=== PATIENT | male | born 1950 | race Hispanic/Latino ===

== ENCOUNTER 2017-04-22 10:51 | Emergency (ER) | payer OTHER ==
[2017-04-22 11:02] VITALS: BMI 25.8
[2017-04-22 11:06] VITALS: TEMP 99.4
[2017-04-22 11:55] LABS: URINE BILIRUBIN NEGATIVE (NEGATIVE); URINE BLOOD MODERATE (NEGATIVE); URINE GLUCOSE (UA) NEGATIVE (NEGATIVE); URINE LEUKOCYTE ESTERASE LARGE Leu/uL (NEGATIVE); URINE NITRATE POSITIVE (NEGATIVE); URINE PROTEIN 30 mg/dL (<30 mg/dL); URINE UROBILINOGEN 0.2 E.U./dL (<1 E.U./dL)
[2017-04-22 11:56] LABS: URINE APPEARANCE CLOUDY (CLEAR); URINE COLOR YELLOW (YELLOW)
--- NOTE | 2017-04-22 11:58 | ED PDOC ---
Arrival/HPI - General Chief Complaint: Fever Time Seen by Provider: 04/22/17 10:53 Historian: Patient - History of Present Illness Narrative History of Present Illness (Text): 04/22/17 12:02 A 66 year old male, whose past medical history includes CAD, s/p [place], s/p CABG, with multiple stents and hypertension, was recently admitted for cholangitis during which patient developed urinary retention and was seen by Urology Dr. Adler presenting today for fever x 2 days. Patient saw PMD, who prescribed ciprofloxacin yesterday. Patient's called Dr. Núñez who told patient to come to the emergency department for further evaluation. Patient presents to the emergency department complaining of fevers of 102-103 for the past two days , nausea, chills, diaphoresis, appetite changes and some dysuria. Reports taking tylenol last night at midnight, and ciprofloxacin this morning. Denies any cough, chest pain, shortness of breath or any other complaints at this time. PMD: Dr. Johnson Urologist: Dr. Adler Time/Duration: Other (2 days) Symptom Onset: Sudden Symptom Course: Unchanged Activities at Onset: Rest Context: Home Associated Symptoms (Text): nausea, appetite changes, chills, diaphoresis and dysuria Past Medical History - Provider Review Nursing Documentation Reviewed: Yes - Infectious Disease Hx of Infectious Diseases: None - Past Medical History Past Medical History: No Previous - Cardiac Hx Cardiac Disorders: Yes ([place]) Hx Hypertension: Yes Other/Comment: open heart surgery with 3 stents - Pulmonary Hx Respiratory Disorders: No - Neurological Hx Neurological Disorder: No - Renal Hx Renal Disorder: No - Endocrine/Metabolic Hx Endocrine Disorders: No - Hematological/Oncological Hx Blood Disorders: Yes Hx Hepatitis C: Yes (hx of) - Integumentary Hx Dermatological Disorder: No - Musculoskeletal/Rheumatological Hx Musculoskeletal Disorders: No Hx Falls: No - Gastrointestinal Hx Gastrointestinal Disorders: No - Genitourinary/Gynecological Hx Genitourinary Disorders: No - Psychiatric Hx Psychophysiologic Disorder: No Hx Substance Use: No (unknown) - Past Surgical History Past Surgical History: No Previous - Surgical History Hx Cardiac Catheterization: Yes (stents) Hx Cholecystectomy: Yes Hx Open Heart Surgery: Yes - Anesthesia Hx Anesthesia: Yes Hx Anesthesia Reactions: No Family/Social History - Physician Review Nursing Documentation Reviewed: Yes Family/Social History: No Known Family HX Smoking Status: Never Smoked Hx Alcohol Use: No (unknown) Hx Substance Use: No (unknown) Hx Substance Use Treatment: No Allergies/Home Meds Allergies/Adverse Reactions: Allergies No Known Allergies Allergy (Verified 04/22/17 11:01) Home Medications: Home Meds Medication Instructions Recorded Confirmed Amlodipine/Valsartan 1 tab PO DAILY 11/24/16 04/22/17 [Amlodipine-Valsartan 10-320 mg] Aspirin [Aspirin Chewable] 81 mg PO DAILY 11/24/16 04/22/17 Atorvastatin [Lipitor] 40 mg PO DAILY 11/24/16 04/22/17 Atropine/Diphenoxylate [Lomotil 1 tab PO DAILY 11/24/16 04/22/17 0.025-2.5 mg tablet] Metoprolol Succinate [Toprol XL] 25 mg PO BID 11/24/16 04/22/17 Ticagrelor [Brilinta] 90 mg PO DAILY 11/24/16 04/22/17 Ciprofloxacin HCl [Cipro] 1 tab PO BID 04/22/17 04/22/17 Review of Systems - Physician Review All systems were reviewed & negative as marked: Yes - Review of Systems Constitutional: Fevers, Other (chills) Respiratory: absent: SOB, Cough Cardiovascular: absent: Chest Pain Gastrointestinal: Appetite Changes Genitourinary Male: Dysuria Endocrine: Diaphoresis Physical Exam - Physical Exam Narrative Physical Exam (Text): 04/22/17 11:58 Constitutional: No acute distress. Head: Normocephalic. Atraumatic. Eyes: PERRL. ENT: Moist mucous membranes. Neck: Supple. Cardiovascular: Regular rate. Chest: No tenderness. Respiratory: Clear to auscultation bilaterally. GI: Soft. Nontender. Nondistended. Back: No CVA tenderness. Musculoskeletal: No tenderness or swelling of extremities. Skin: No rash. Neurologic: Alert, no focal deficit. Vital Signs Reviewed: Yes Vital Signs Temp Pulse Resp BP Pulse Ox 04/22/17 15:24 83 18 148/72 99 04/22/17 13:39 70 16 126/63 100 04/22/17 11:05 99.4 F 89 19 116/76 98 Temperature: Afebrile Blood Pressure: Normal Pulse: Regular Respiratory Rate: Normal Appearance: Positive for: Well-Appearing, Non-Toxic, Comfortable Pain Distress: None Mental Status: Positive for: Alert and Oriented X 3 Medical Decision Making ED Course and Treatment: 04/22/17 11:45 Impression: A 66 year old male with fever. Plan: -- chest xray -- CT abd/pelvis -- labs -- Urinalysis -- Reassess and disposition Prior Visits: Notes and results from previous visits were reviewed. Patient last reported to the emergency department on 11/24/16 for evaluation of nausea, vomiting and diaphoresis. Patient admitted for cholecystitis. Patient discharged on 12/01/16. Progress Notes: 04/22/17 13:30 Chest xray: No acute disease, interpreted by me. 04/22/17 13:30 CT Abdomen and Pelvis with contrast Creator : Salazar Horn MD IMPRESSION: Moderate distention of the bladder with mural thickening. There is also mural enhancement of the ureters and renal collecting systems. Findings are consistent with urinary tract infection. No evidence of pyelonephritis. Patient with normal vital signs, lactic acid negative, mild leukocytosis. Discussed case with Dr. Johnson who agrees with discharge on Cipro and follow up in office. Dr. Adler saw patient at bedside, agrees with discharge. - Lab Interpretations Lab Results: 04/22/17 11:30 04/22/17 11:30 Lab Results 04/22/17 11:30: Urine Color Yellow, Urine Appearance Cloudy, Urine pH 6.0, Ur Specific [place] 1.025, Urine Protein 30 H, Urine Glucose (UA) Negative, Urine Ketones Negative, Urine Blood Moderate H, Urine Nitrate Positive H, Urine Bilirubin Negative, Urine Urobilinogen 0.2, Ur Leukocyte Esterase Large H, Urine RBC 1 - 3, Urine WBC Tntc, Ur Epithelial Cells 0 - 2, Urine Bacteria Large 04/22/17 11:30: PT 12.9 H, INR 1.19 H, APTT 32.1 H 04/22/17 11:30: WBC 13.0 H D, RBC 5.13, Hgb 15.6, Hct 43.5, MCV 84.8, MCH 30.4, MCHC 35.9, RDW 12.6, Plt Count 169, MPV 10.6, Gran % 70.3 H, Lymph % (Auto) 14.7 L, [place] % (Auto) 14.6 H, Eos % (Auto) 0.2 L, Baso % (Auto) 0.2, Gran # 9.11 H, Lymph # 1.9, [place] # 1.9 H, Eos # 0.0, Baso # 0.03 04/22/17 11:30: Blood Type O NEGATIVE, Antibody Screen Negative, BBK History Checked Patient has bt 04/22/17 11:30: Sodium 137, Potassium 4.7, Chloride 99, Carbon Dioxide 27, Anion Gap 16, BUN 16, Creatinine 1.1, Est GFR ( Amer) > 60, Est GFR (Non- Af Amer) > 60, Random Glucose 109, Calcium 10.0, Total Bilirubin 1.9 H, AST 23, ALT 28, Alkaline Phosphatase 71, Total Protein 8.4 H, Albumin 4.6, Globulin 3.8 , Albumin/Globulin Ratio 1.2, Lipase 34 I have reviewed the lab results: Yes - RAD Interpretation Radiology Orders: 04/22/17 11:22 ABD & PELVIS IV CONTRAST ONLY [CT] Stat CHEST TWO VIEWS (PA/LAT) [RAD] Stat - Medication Orders Current Medication Orders: Discontinued Medications Cefepime HCl (Maxipime 2gm) 2 gm in 100 mls @ 100 mls/hr IVPB STAT STA PRN Reason: Protocol Stop: 04/22/17 13:08 Last Admin: 04/22/17 12:35 Dose: 100 mls/hr Iohexol (Omnipaque 350 100 Ml) Confirm Administered Dose 350 mg .ROUTE .STK-MED ONE Stop: 04/22/17 12:46 - Scribe Statement The provider has reviewed the documentation as recorded by the Scribjeremías Burns All medical record entries made by the Israelibjeremías were at my direction and personally dictated by me. I have reviewed the chart and agree that the record accurately reflects my personal performance of the history, physical exam, medical decision making, and the department course for this patient. I have also personally directed, reviewed, and agree with the discharge instructions and disposition. Disposition/Present on Arrival - Present on Arrival Any Indicators Present on Arrival: No History of DVT/PE: No History of Uncontrolled Diabetes: No Urinary Catheter: No History of Decub. Ulcer: No History Surgical Site Infection Following: None - Disposition Have Diagnosis and Disposition been Completed?: Yes Diagnosis: UTI (urinary tract infection) Disposition: HOME/ ROUTINE Disposition Time: 13:30 Patient Plan: Discharge Patient Problems: Current Active Problems Problem Status Onset UTI (urinary tract infection) Acute Condition: STABLE Discharge Instructions (ExitCare): Urinary Tract Infection in Women (ED) Additional Instructions: Continue your ciprofloxacin. Prescriptions: Ondansetron ODT [Zofran ODT] 4 mg PO Q8 #12 odt Referrals: Alex PAYNE,Manpreet Camejo MD [Staff Provider] - Follow up with primary Elver Adler MD [Staff Provider] - Follow up with primary
[2017-04-22 11:59] LABS: BASO # 0.03 K/mm3 (0.0-2.0); BASO % 0.2 % (0.0-3.0); EOS % 0.2 % (1.5-5.0); GRAN # 9.11 (1.4-6.5); GRAN % 70.3 % (50.0-68.0); HEMOGLOBIN 15.6 gm/dL (14.0-18.0); LYMPH # 1.9 (1.2-3.4); LYMPH % 14.7 % (22.0-35.0); MEAN CELL VOLUME 84.8 fL (80.0-105.0); MEAN CORPUSCULAR HEMOGLOBIN 30.4 pg (25.0-35.0); MEAN CORPUSCULAR HGB CONC 35.9 g/dl (31.0-37.0); MEAN PLATELET VOLUME 10.6 fl (7.0-11.0); MONO # 1.9 (0.1-0.6); MONO % 14.6 % (1.0-6.0); PLATELET COUNT 169 10^3/uL (120.0-450.0); RBC 5.13 10^6/uL (3.5-6.1); RED CELL DISTRIBUTION WIDTH 12.6 % (11.5-14.5)
[2017-04-22 12:01] LABS: URINE BACTERIA LARGE (NEG); URINE EPITHELIAL CELLS 0 - 2 /hpf (0-5); URINE WBC TNTC /hpf (0-6)
[2017-04-22 12:06] LABS: ALB/GLOB RATIO 1.2 (1.1-1.8); ALBUMIN 4.6 g/dL (3.0-4.8); ALT/SGPT 28 U/L (7-56); AST/SGOT 23 U/L (15-59); BLOOD UREA NITROGEN 16 mg/dL (7-21); GFR AFRICAN-AMERICAN > 60; GFR NON-AFRICAN AMERICAN > 60; INR 1.19 (0.93-1.08); LIPASE 34 U/L (23-300); PARTIAL THROMBOPLASTIN TIME 32.1 Seconds (23.7-30.8); PROTHROMBIN TIME 12.9 Seconds (9.9-11.8)
[2017-04-22] MEDS ORDERED: Cefepime IV 2 gm in NS 2 GM/100 ML BAG IVPB STA (12:09)
[2017-04-22] MEDS ORDERED: Iohexol 350 MG/100 ML VIAL ONE (12:45)
--- NOTE | 2017-04-22 13:30 | CT ---
PROCEDURE: CT Abdomen and Pelvis with contrast HISTORY: fever, dysuria, urinary retention COMPARISON: 11/24/2016 TECHNIQUE: Contrast dose: 100 cc of Omni 350 Radiation dose: Total exam DLP = 479 mGy-cm. This CT exam was performed using one or more of the following dose reduction techniques: Automated exposure control, adjustment of the mA and/or kV according to patient size, and/or use of iterative reconstruction technique. FINDINGS: LOWER THORAX: Unremarkable. LIVER: Unremarkable. No gross lesion or ductal dilatation. GALLBLADDER AND BILE DUCTS: Gallbladder removed PANCREAS: Unremarkable. No gross lesion or ductal dilatation. SPLEEN: Unremarkable. ADRENALS: Unremarkable. No mass. KIDNEYS AND URETERS: There is mural enhancement in the renal collecting systems and both ureters as well as the urinary bladder consistent with urinary tract infection. There is no edema in the kidneys to suggest pyelonephritis. There is moderate distention of the bladder VASCULATURE: Unremarkable. No aortic aneurysm. BOWEL: Unremarkable. No obstruction. No gross mural thickening. APPENDIX: Normal appendix. PERITONEUM: Unremarkable. No free fluid. No free air. LYMPH NODES: Unremarkable. No enlarged lymph nodes. BLADDER: Unremarkable. REPRODUCTIVE: The prostate is mildly enlarged measuring 4.8 cm BONES: No acute fracture. OTHER FINDINGS: None. IMPRESSION: Moderate distention of the bladder with mural thickening. There is also mural enhancement of the ureters and renal collecting systems. Findings are consistent with urinary tract infection. No evidence of pyelonephritis.
--- NOTE | 2017-04-22 13:37 | RAD ---
HISTORY: fever COMPARISON: 11/24/2016 TECHNIQUE: Chest PA and lateral FINDINGS: LUNGS: No active pulmonary disease. PLEURA: No significant pleural effusion identified. No pneumothorax apparent. CARDIOVASCULAR: Normal heart size. Sternotomy wires are noted. OSSEOUS STRUCTURES: No significant abnormalities. VISUALIZED UPPER ABDOMEN: Normal. OTHER FINDINGS: None. IMPRESSION: No active disease.
[2017-04-22 15:25] VITALS: BP 148/72; PULSE 83; RESP 18; O2SAT 99
== END 2017-04-22 15:45 | disposition home or self-care (01) ==
LOC: ED 10:51
DX: N39.0 Urinary tract infection, site not specified (principal); I25.10 Atherosclerotic heart disease of native coronary artery without angina pectoris; I10 Essential (primary) hypertension; I25.2 Old myocardial infarction; Z95.1 Presence of aortocoronary bypass graft
CPT/HCPCS: 71020; 74177; 80053; 81001; 83690; 85025; 85610; 85730; 86850; 86900; 87040; 87086; 87181; 96374; 99285; J0692; Q9967